=== PATIENT | female | born 1960 | race Caucasian/White ===

== ENCOUNTER → 2024-11-20 10:24 | Outpatient (REF) | payer OTHER, SELFPAY | LOC: HWWDC 10:24 | PROVIDERS: ATTENDING PHYSICIAN Internal Medicine; REFERRING PHYSICIAN Internal Medicine Rheumatology | DX: Z12.31 Encounter for screening mammogram for malignant neoplasm of breast (principal); Z78.0 Asymptomatic menopausal state | CPT/HCPCS: 77063; 77067; 77080 ==